=== PATIENT | male | born 1975 | race African-American/Black ===

== ENCOUNTER 2016-10-19 11:08 | Inpatient (IN) | payer BC ==
[~2016-10-19] VITALS: Ht 190.5 cm; Wt 103.9 kg
[2016-10-19 12:44] LABS: BG BASE EXCESS -10.6 mmol/L (-2.0-2.0); BG CARBOXYHEMOGLOBIN 1.4 % (0.5-1.5); BG DEOXYHEMOGLOBIN 3.4 % (0.0-5.0); BG FRACTION INSPIRED OXYGEN 21; BG HCO3 ACT 15.1 mmol/L (22.0-26.0); BG METHEMOGLOBIN 0.1 % (0.0-1.5); BG OXYGEN SATURATION 96.5 % (92.0-98.5); BG OXYHEMOGLOBIN 95.1 % (94.0-97.0); BG PCO2 32.9 mmHg (35.0-45.0); BG PH 7.279 (7.350-7.450); BG PO2 98.1 mmHg (75.0-100.0); BG SAMPLE SITE LEFT BRACHIAL; BG TOTAL HEMOGLOBIN 12.9 g/dL (12.0-18.0); BG VENT MODE ROOM AIR
[2016-10-19] MEDS ORDERED: LABETALOL 5MG/ML SYR 20 MG/4 ML SYRINGE IV ONE (12:45)
[2016-10-19] MEDS ORDERED: CLONIDINE 0.1MG TABLET PO ONE (12:45)
[2016-10-19 13:05] LABS: BASOPHILS % 0.9 % (0.0-2.0); EOSINOPHILS % 2.1 % (0.0-5.0); HEMATOCRIT. 39.5 % (42.0-52.0); MEAN CORPUSCULAR HEMOGLOBIN 27.7 pg (28.0-32.0); MEAN CORPUSCULAR VOLUME 84.3 fL (80.0-94.0); MONOCYTES % 10.9 % (2.0-8.0); NEUTROPHILS % 78.1 % (40.0-76.0); RED BLOOD CELL COUNT 4.68 mill/uL (4.7-6.1); RED CELL DISTRIBUTION WIDTH 15.4 % (11.6-14.6)
[2016-10-19 13:08] LABS: PROTHROMBIN TIME 10.3 sec (9.4-11.6)
[2016-10-19 13:10] LABS: CARBON DIOXIDE 19 mEq/L (21-32); CHLORIDE 101 mEq/L (98-107); ETHANOL BLOOD < 10 mg/dL
[2016-10-19 13:17] LABS: TROPONIN I 0.36 ng/mL (0.00-0.04)
[2016-10-19 13:32] LABS: MEAN PLATELET VOLUME 9.1 fl (7.4-10.4); PLATELET 52 x1000/uL (130-400)
[2016-10-19] MEDS ORDERED: DEXTROSE 50% WATER 50ML SYRINGE IV ONE (13:45)
[2016-10-19] MEDS ORDERED: CALCIUM CHLORIDE 1GM/10ML SYR IV ONE (13:45)
[2016-10-19] MEDS ORDERED: INSULIN REGULAR (HUMULIN R) 300UNITS/3ML IV ONE (13:45)
[2016-10-19] MEDS ORDERED: SODIUM POLYSTYRENE SULFONATE 15 G/60 ML BOT PO ONE (13:45)
[2016-10-19] MEDS ORDERED: SODIUM BICARBONATE 8.4% 1 MEQ/ML 50ML SYR IV ONE (13:45)
[2016-10-19] MEDS ORDERED: IOHEXOL-300 100 ML BOTTLE ONE (14:41)
[2016-10-19] MEDS ORDERED: SODIUM CHLORIDE 0.9% 10ML VIAL ONE (14:41)
[2016-10-19] MEDS ORDERED: CEFTRIAXONE 1 G PREMIX 50 ML IV ONE (15:30)
[2016-10-19 16:13] LABS: CLARITY URINE CLEAR (CLEAR); COLOR URINE YELLOW (YELLOW); GLUCOSE URINE TRACE (NEGATIVE); KETONES URINE NEGATIVE (NEGATIVE); LEUKOCYTE ESTERASE URINE NEGATIVE (NEGATIVE); NITRITE URINE NEGATIVE (NEGATIVE); OCCULT BLOOD URINE 1+ (NEGATIVE); PROTEIN URINE 3+ (NEGATIVE); SPECIFIC GRAVITY URINE 1.015 (1.005-1.030); UROBILINOGEN URINE 0.2 E.U./dL (0.2-1.0)
[2016-10-19] MEDS ORDERED: HYDROCODONE/ACETAMINOPHEN 5/325MG TABLET PO ONE (16:15)
[2016-10-19 16:26] LABS: *AMPHETAMINES SCREEN URINE NEGATIVE (NEGATIVE); *BARBITURATES SCREEN URINE NEGATIVE (NEGATIVE); *BENZODIAZEPINES SCREEN URINE NEGATIVE (NEGATIVE); *COCAINE SCREEN URINE NEGATIVE (NEGATIVE); CANNABINOID URINE SCREEN NEGATIVE (NEGATIVE); METHADONE URINE SCREEN NEGATIVE (NEGATIVE); OPIATES URINE SCREEN NEGATIVE (NEGATIVE); PHENCYCLIDINE URINE SCREEN NEGATIVE (NEGATIVE)
[2016-10-19 17:00] VITALS: BP 229/120
[2016-10-19] MEDS ORDERED: LOSA100T14 PO (17:04)
[2016-10-19] MEDS ORDERED: ISOS30TA6 PO (17:04)
[2016-10-19] MEDS ORDERED: AMLO2.5T45 PO (17:05)
[2016-10-19] MEDS ORDERED: HYDR100T26 PO (17:12)
[2016-10-19] MEDS ORDERED: SEVE800T8 PO (17:12)
[2016-10-19] MEDS ORDERED: PHOSLO PO (17:12)
[2016-10-19] MEDS ORDERED: RENAVITE (17:12)
[2016-10-19] MEDS ORDERED: LABE100T PO (17:12)
[2016-10-19] MEDS ORDERED: ACETAMINOPHEN 650MG/20.3ML UDC PO PRN (18:15)
[2016-10-19] MEDS ORDERED: ONDANSETRON HCL 4MG/2ML VIAL IV PRN (18:15)
[2016-10-19] MEDS ORDERED: HYDRALAZINE 20MG/ML VIAL IV NR (18:30)
[2016-10-19] MEDS ORDERED: GENTAMICIN 100MG PREMIX 50 ML IV SCH (20:00)
[2016-10-19] MEDS: LABETALOL HCL 200MG TABLET PO SCH (21:25)
[2016-10-19] MEDS: HYDRALAZINE HCL 100MG TABLET PO SCH (21:25)
[2016-10-19] MEDS: HYDROCODONE/ACETAMINOPHEN 5/325MG TABLET PO PRN (21:26)
[2016-10-19] MEDS ORDERED: CARISOPRODOL 350 MG TABLET PO NR (22:10)
[2016-10-20] MEDS: LABETALOL HCL 200MG TABLET PO SCH ×3 (05:32→21:59)
[2016-10-20] MEDS: HYDRALAZINE HCL 100MG TABLET PO SCH ×3 (05:33→21:59)
[2016-10-20 05:57] LABS: HEMATOCRIT. 33.4 % (42.0-52.0); HEMOGLOBIN. 11.2 g/dL (14.0-18.0); MEAN CORPUSCULAR HEMOGLOBIN 27.7 pg (28.0-32.0); MEAN CORPUSCULAR VOLUME 82.7 fL (80.0-94.0); MEAN PLATELET VOLUME 9.3 fl (7.4-10.4); PLATELET 51 x1000/uL (130-400); RED BLOOD CELL COUNT 4.04 mill/uL (4.7-6.1); RED CELL DISTRIBUTION WIDTH 15.3 % (11.6-14.6)
[2016-10-20 05:59] LABS: CARBON DIOXIDE 21 mEq/L (21-32); CHLORIDE 102 mEq/L (98-107)
[2016-10-20 06:18] LABS: PHOSPHORUS 7.3 mg/dL (2.5-4.9)
[2016-10-20 08:00] VITALS: BP 154/100
[2016-10-20] MEDS ORDERED: SEVELAMER CARBONATE 800 MG TABLET PO SCH (08:10)
[2016-10-20] MEDS: FOLIC ACID/VITAMIN B COMP W-C TABLET PO SCH (08:18)
[2016-10-20] MEDS: LOSARTAN POTASSIUM 100 MG TABLET PO SCH (08:18)
[2016-10-20] MEDS: AMLODIPINE 10MG TABLET PO SCH (08:18)
[2016-10-20] MEDS: OMEPRAZOLE 20MG CAPSULE EXTENDED RELEASE PO SCH (08:19)
[2016-10-20] MEDS ORDERED: ENOXAPARIN 30MG/0.3ML SYR SUBCUT SCH (09:00)
[2016-10-20] MEDS ORDERED: ISOSORBIDE MONONITRATE 30MG TABLET SR 24HR PO SCH (09:00)
[2016-10-20 12:20] VITALS: BP 149/88
[2016-10-20] MEDS: SEVELAMER CARBONATE 800 MG TABLET PO SCH ×2 (13:37→17:35)
[2016-10-20 16:17] VITALS: BP 127/75
[2016-10-20] MEDS: ISOSORBIDE DINITRATE 30MG TABLET PO SCH (17:34)
[2016-10-20] MEDS: HYDROCODONE/ACETAMINOPHEN 5/325MG TABLET PO PRN (21:58)
[2016-10-21 06:03] LABS: BASOPHILS % 0.7 % (0.0-2.0); EOSINOPHILS % 2.7 % (0.0-5.0); HEMOGLOBIN. 10.9 g/dL (14.0-18.0); LYMPHOCYTES % 9.4 % (20.0-50.0); MEAN CORPUSCULAR HEMOGLOBIN 27.5 pg (28.0-32.0); MEAN CORPUSCULAR VOLUME 82.9 fL (80.0-94.0); MEAN PLATELET VOLUME 9.7 fl (7.4-10.4); MONOCYTES % 9.5 % (2.0-8.0); NEUTROPHILS % 77.7 % (40.0-76.0); PLATELET 67 x1000/uL (130-400); RED BLOOD CELL COUNT 3.97 mill/uL (4.7-6.1); RED CELL DISTRIBUTION WIDTH 15.1 % (11.6-14.6)
[2016-10-21] MEDS: HYDRALAZINE HCL 100MG TABLET PO SCH ×3 (06:41→21:20)
[2016-10-21] MEDS: LABETALOL HCL 200MG TABLET PO SCH ×3 (06:42→21:20)
[2016-10-21 08:00] VITALS: BP 144/95
[2016-10-21] MEDS: FOLIC ACID/VITAMIN B COMP W-C TABLET PO SCH (08:41)
[2016-10-21] MEDS: AMLODIPINE 10MG TABLET PO SCH (08:42)
[2016-10-21] MEDS: ISOSORBIDE DINITRATE 30MG TABLET PO SCH ×2 (08:42→17:27)
[2016-10-21] MEDS: LOSARTAN POTASSIUM 100 MG TABLET PO SCH (08:42)
[2016-10-21] MEDS: OMEPRAZOLE 20MG CAPSULE EXTENDED RELEASE PO SCH (08:42)
[2016-10-21] MEDS: SEVELAMER CARBONATE 800 MG TABLET PO SCH ×3 (08:42→17:27)
[2016-10-21 12:11] VITALS: BP 142/82
[2016-10-21 15:34] VITALS: BP 122/68
[2016-10-21] MEDS: CITALOPRAM HYDROBROMIDE 10MG TABLET PO SCH (17:27)
[2016-10-21] MEDS ORDERED: GENTAMICIN 100MG PREMIX 50 ML IV NR (18:30)
[2016-10-21 20:00] VITALS: BP 133/73
[2016-10-21 21:07] LABS: PLATELET ESTIMATE DECREASED
[2016-10-21] MEDS: HYDROCODONE/ACETAMINOPHEN 5/325MG TABLET PO PRN (21:25)
[2016-10-22] VITALS: BP 107/55
[2016-10-22 04:00] VITALS: BP 108/62
[2016-10-22 05:19] LABS: BASOPHILS % 1.2 % (0.0-2.0); EOSINOPHILS % 4.4 % (0.0-5.0); HEMOGLOBIN. 10.4 g/dL (14.0-18.0); LYMPHOCYTES % 10.7 % (20.0-50.0); MEAN PLATELET VOLUME 9.4 fl (7.4-10.4); MONOCYTES % 9.5 % (2.0-8.0); NEUTROPHILS % 74.2 % (40.0-76.0); PLATELET 82 x1000/uL (130-400); RED BLOOD CELL COUNT 3.85 mill/uL (4.7-6.1); RED CELL DISTRIBUTION WIDTH 14.7 % (11.6-14.6)
[2016-10-22] MEDS: HYDRALAZINE HCL 100MG TABLET PO SCH ×3 (05:45→21:53)
[2016-10-22] MEDS: LABETALOL HCL 200MG TABLET PO SCH ×3 (05:46→21:53)
[2016-10-22 06:00] LABS: GENTAMICIN RANDOM 3.7 ug/mL
[2016-10-22 07:46] VITALS: BP 131/83
[2016-10-22] MEDS: ISOSORBIDE DINITRATE 30MG TABLET PO SCH ×2 (08:32→17:37)
[2016-10-22] MEDS: CITALOPRAM HYDROBROMIDE 10MG TABLET PO SCH (08:32)
[2016-10-22] MEDS: LOSARTAN POTASSIUM 100 MG TABLET PO SCH (08:32)
[2016-10-22] MEDS: AMLODIPINE 10MG TABLET PO SCH (08:32)
[2016-10-22] MEDS: FOLIC ACID/VITAMIN B COMP W-C TABLET PO SCH (08:32)
[2016-10-22] MEDS: OMEPRAZOLE 20MG CAPSULE EXTENDED RELEASE PO SCH (08:32)
[2016-10-22] MEDS: SEVELAMER CARBONATE 800 MG TABLET PO SCH ×3 (08:32→17:37)
[2016-10-22] MEDS ORDERED: FAMOTIDINE 20MG TABLET PO SCH (09:00)
[2016-10-22 12:00] VITALS: BP 142/89
[2016-10-22 15:37] VITALS: BP 142/84
[2016-10-22] MEDS: HYDROCODONE/ACETAMINOPHEN 5/325MG TABLET PO PRN (17:39)
[2016-10-22 20:00] VITALS: BP 104/60
[2016-10-22] MEDS ORDERED: EPOETIN ALFA 10000UNITS/ML VIAL SUBCUT NR (21:00)
[2016-10-23] VITALS: BP 112/67
[2016-10-23 04:00] VITALS: BP 120/60
[2016-10-23] MEDS: HYDRALAZINE HCL 100MG TABLET PO SCH (06:02)
[2016-10-23] MEDS: LABETALOL HCL 200MG TABLET PO SCH (06:02)
[2016-10-23 06:33] LABS: BASOPHILS % 1.7 % (0.0-2.0); EOSINOPHILS % 4.1 % (0.0-5.0); HEMATOCRIT. 33.5 % (42.0-52.0); LYMPHOCYTES % 11.5 % (20.0-50.0); MEAN CORPUSCULAR HEMOGLOBIN 27.5 pg (28.0-32.0); MEAN CORPUSCULAR VOLUME 83.5 fL (80.0-94.0); MONOCYTES % 9.5 % (2.0-8.0); NEUTROPHILS % 73.2 % (40.0-76.0); PLATELET 114 x1000/uL (130-400); RED BLOOD CELL COUNT 4.01 mill/uL (4.7-6.1); RED CELL DISTRIBUTION WIDTH 14.5 % (11.6-14.6)
[2016-10-23 08:00] VITALS: BP 99/62
[2016-10-23] MEDS: AMLODIPINE 10MG TABLET PO SCH (09:00)
[2016-10-23] MEDS: ISOSORBIDE DINITRATE 30MG TABLET PO SCH (09:00)
[2016-10-23] MEDS: LOSARTAN POTASSIUM 100 MG TABLET PO SCH (09:00)
[2016-10-23] MEDS: CITALOPRAM HYDROBROMIDE 10MG TABLET PO SCH (09:15)
[2016-10-23] MEDS: OMEPRAZOLE 20MG CAPSULE EXTENDED RELEASE PO SCH (09:15)
[2016-10-23] MEDS: SEVELAMER CARBONATE 800 MG TABLET PO SCH (09:15)
[2016-10-23] MEDS: FOLIC ACID/VITAMIN B COMP W-C TABLET PO SCH (09:21)
[2016-10-23] MEDS ORDERED: OMEP20CA10 PO (10:59)
[2016-10-23] MEDS ORDERED: CITA10TA16 PO (10:59)
[2016-10-23] MEDS ORDERED: HYDR100T26 PO (11:00)
[2016-10-23 11:03] VITALS: BP 132/87
== END 2016-10-23 11:15 | disposition home or self-care (01) | DRG 640 ==
LOC: ER 12:37 → ENRESERV 15:30 → 7WST 15:46 → EDBEDREQTM 15:55 → EDBEDREQ 15:55 → CANBEDREQ 16:17
DX: E87.5 Hyperkalemia (principal); K65.0 Generalized (acute) peritonitis; I13.2 Hypertensive heart and chronic kidney disease with heart failure and with stage 5 chronic kidney disease, or end stage renal disease; D61.818 Other pancytopenia; N18.6 End stage renal disease; E87.2 Acidosis; E46 Unspecified protein-calorie malnutrition; I16.1 Hypertensive emergency; I50.9 Heart failure, unspecified; K21.9 Gastro-esophageal reflux disease without esophagitis; F32.9 Major depressive disorder, single episode, unspecified; Z91.15 Patient's noncompliance with renal dialysis; Z99.2 Dependence on renal dialysis; Z79.899 Other long term (current) drug therapy; Z68.28 Body mass index [BMI] 28.0-28.9, adult
CPT/HCPCS: 36415; 36600; 71010; 74177; 80048; 80053; 80170; 80305; 81001; 82375; 82805; 82962; 83605; 83690; 83735; 84100; 84132; 84484; 85025; 85610; 85730; 86850; 86900; 87040; 87070; 87086; 87205; 89050; 93005; 93306; 96374; 96375; 99291; A4216; G0482; J0360; J0696; J0885; J1580; J1815; J2405; J3490; J7050; Q9967

== ENCOUNTER 2017-02-27 10:30 | Inpatient (IN) | payer BC, MEDICAID, OTHER ==
[~2017-02-27] VITALS: Ht 190.5 cm; Wt 94.3 kg
[~2017-02-27 10:30] MED LIST: AMLO2.5T45 PO; CITA10TA16 PO; HYDR100T26 PO; ISOS30TA6 PO; LABE100T PO; LOSA100T14 PO; OMEP20CA10 PO; PHOSLO PO; RENAVITE; SEVE800T8 PO
[2017-02-27 12:30] LABS: HEMOGLOBIN. 8.8 g/dL (14.0-18.0); MEAN CORPUSCULAR VOLUME 86.4 fL (80.0-94.0); PLATELET 228 x1000/uL (130-400); RED BLOOD CELL COUNT 3.12 mill/uL (4.7-6.1)
[2017-02-27 12:50] LABS: INR 1.1; PROTHROMBIN TIME 11.7 sec (9.4-11.6)
[2017-02-27 12:56] LABS: CARBON DIOXIDE 23 mEq/L (21-32); CHLORIDE 100 mEq/L (98-107)
[2017-02-27 12:57] LABS: TROPONIN I 0.34 ng/mL (0.00-0.04)
[2017-02-27 13:27] LABS: PLATELET ESTIMATE NORMAL
[2017-02-27] MEDS ORDERED: HYDRALAZINE 20MG/ML VIAL IV ONE (16:30)
[2017-02-28] VITALS (14 sets, daily range): BP systolic 139–211; BP diastolic 72–137
[2017-02-28] MEDS ORDERED: DOCUSATE SODIUM 100MG CAPSULE PO PRN
[2017-02-28] MEDS ORDERED: IPRATROPIUM/ALBUTEROL 0.5-3(2.5)MG/3ML NEB INH PRN
[2017-02-28] MEDS ORDERED: ACETAMINOPHEN 325MG TABLET PO PRN
[2017-02-28] MEDS ORDERED: HYDROCODONE/ACETAMINOPHEN 5/325MG TABLET PO PRN
[2017-02-28] MEDS ORDERED: DIPHENHYDRAMINE 50MG/ML VIAL IV PRN
[2017-02-28] MEDS ORDERED: CLONIDINE 0.1MG TABLET PO PRN
[2017-02-28] MEDS ORDERED: ONDANSETRON HCL 4MG/2ML VIAL IV PRN
[2017-02-28] MEDS ORDERED: GUAIFENESIN 200MG/10ML SUGAR FREE UDC PO PRN
[2017-02-28] MEDS ORDERED: LORAZEPAM 2MG/ML CPJ IV PRN
[2017-02-28] MEDS ORDERED: AMLODIPINE 10MG TABLET PO SCH (02:24)
[2017-02-28] MEDS: AMLODIPINE 10MG TABLET PO SCH (02:26)
[2017-02-28] MEDS ORDERED: LORAZEPAM 0.5MG TABLET PO PRN (02:30)
[2017-02-28] MEDS: LOSARTAN POTASSIUM 100 MG TABLET PO SCH ×2 (02:31→08:22)
[2017-02-28] MEDS: HYDRALAZINE HCL 100MG TABLET PO SCH ×4 (02:31→21:25)
[2017-02-28] MEDS: ISOSORBIDE DINITRATE 30MG TABLET PO SCH ×3 (02:48→17:25)
[2017-02-28] MEDS: LABETALOL HCL 300MG TABLET PO SCH ×4 (02:48→21:25)
[2017-02-28] MEDS ORDERED: NITROPRUSSIDE 50 MG in DEXT 5% WATER 250 ML IV PRN (05:00)
[2017-02-28 05:48] LABS: HEMATOCRIT. 26.6 % (42.0-52.0); MEAN CORPUSCULAR HEMOGLOBIN 28.8 pg (28.0-32.0); MEAN CORPUSCULAR VOLUME 85.6 fL (80.0-94.0); MEAN PLATELET VOLUME 7.5 fl (7.4-10.4); PLATELET 245 x1000/uL (130-400); RED BLOOD CELL COUNT 3.11 mill/uL (4.7-6.1); RED CELL DISTRIBUTION WIDTH 18.9 % (11.6-14.6)
[2017-02-28] MEDS: OMEPRAZOLE 20MG CAPSULE EXTENDED RELEASE PO SCH (06:34)
[2017-02-28 07:03] LABS: T4 FREE 0.93 ng/dL (0.76-1.46)
[2017-02-28] MEDS ORDERED: CALCIUM ACETATE 667MG CAPSULE PO ONE (08:00)
[2017-02-28] MEDS: SEVELAMER CARBONATE 800 MG TABLET PO SCH ×4 (08:00→17:23)
[2017-02-28] MEDS: ASPIRIN 81MG EC TABLET PO SCH (08:22)
[2017-02-28] MEDS: FOLIC ACID/VITAMIN B COMP W-C TABLET PO SCH (08:22)
[2017-02-28 09:01] LABS: PHOSPHORUS 8.3 mg/dL (2.5-4.9)
[2017-02-28] MEDS ORDERED: CINACALCET HCL 90MG TABLET PO SCH (10:00)
[2017-02-28] MEDS: CALCITRIOL 0.25MCG CAPSULE PO SCH (10:42)
[2017-02-28] MEDS ORDERED: CLONIDINE HCL 0.3MG/24HR PATCH TD SCH (11:00)
[2017-02-28 16:18] LABS: PLATELET ESTIMATE NORMAL
[2017-02-28] MEDS ORDERED: EPOETIN ALFA 10000UNITS/ML VIAL SUBCUT SCH (21:00)
[2017-03-01] VITALS (13 sets, daily range): BP systolic 106–170; BP diastolic 64–92
[2017-03-01] MEDS: OMEPRAZOLE 20MG CAPSULE EXTENDED RELEASE PO SCH (05:42)
[2017-03-01] MEDS: HYDRALAZINE HCL 100MG TABLET PO SCH (05:42)
[2017-03-01] MEDS: LABETALOL HCL 300MG TABLET PO SCH ×3 (05:42→22:00)
[2017-03-01] MEDS: SEVELAMER CARBONATE 800 MG TABLET PO SCH ×4 (08:00→18:42)
[2017-03-01] MEDS: ASPIRIN 81MG EC TABLET PO SCH (08:31)
[2017-03-01] MEDS: CALCITRIOL 0.25MCG CAPSULE PO SCH (08:31)
[2017-03-01] MEDS: FOLIC ACID/VITAMIN B COMP W-C TABLET PO SCH (08:31)
[2017-03-01] MEDS: CINACALCET HCL 30MG TABLET PO SCH (08:31)
[2017-03-01] MEDS: ISOSORBIDE DINITRATE 30MG TABLET PO SCH ×2 (08:31→17:00)
[2017-03-01] MEDS: AMLODIPINE 10MG TABLET PO SCH (08:31)
[2017-03-01] MEDS: LOSARTAN POTASSIUM 100 MG TABLET PO SCH (08:31)
[2017-03-01] MEDS ORDERED: IRON SUCROSE COMPLEX 100 MG/5 ML ML IV SCH (14:00)
[2017-03-01] MEDS ORDERED: EPOETIN ALFA 10000UNITS/ML VIAL SUBCUT SCH (21:00)
[2017-03-02] VITALS (8 sets, daily range): BP systolic 106–155; BP diastolic 66–88
[2017-03-02] MEDS: LABETALOL HCL 300MG TABLET PO SCH (06:00)
[2017-03-02 06:43] LABS: HEMATOCRIT. 30.1 % (42.0-52.0); MEAN CORPUSCULAR HEMOGLOBIN 28.3 pg (28.0-32.0); MEAN CORPUSCULAR VOLUME 84.9 fL (80.0-94.0); MEAN PLATELET VOLUME 7.7 fl (7.4-10.4); PLATELET 293 x1000/uL (130-400); RED BLOOD CELL COUNT 3.54 mill/uL (4.7-6.1); RED CELL DISTRIBUTION WIDTH 19.2 % (11.6-14.6)
[2017-03-02] MEDS: OMEPRAZOLE 20MG CAPSULE EXTENDED RELEASE PO SCH (07:30)
[2017-03-02 07:31] LABS: PHOSPHORUS 7.6 mg/dL (2.5-4.9)
[2017-03-02 08:28] LABS: PLATELET ESTIMATE NORMAL
[2017-03-02] MEDS: FOLIC ACID/VITAMIN B COMP W-C TABLET PO SCH (08:41)
[2017-03-02] MEDS: SEVELAMER CARBONATE 800 MG TABLET PO SCH (08:41)
[2017-03-02] MEDS: CALCITRIOL 0.25MCG CAPSULE PO SCH (08:42)
[2017-03-02] MEDS: LOSARTAN POTASSIUM 100 MG TABLET PO SCH (08:42)
[2017-03-02] MEDS: ISOSORBIDE DINITRATE 30MG TABLET PO SCH (08:42)
[2017-03-02] MEDS: CINACALCET HCL 30MG TABLET PO SCH (08:42)
[2017-03-02] MEDS: ASPIRIN 81MG EC TABLET PO SCH (08:43)
[2017-03-02] MEDS: AMLODIPINE 10MG TABLET PO SCH (08:43)
== END 2017-03-02 14:30 | disposition home or self-care (01) | DRG 291 ==
LOC: ER 12:27 → EDBEDREQ 16:30 → EDBEDREQTM 16:30 → EDBEDREQSVC 16:30 → 5EST 17:59 → EDBEDREQTM 18:00 → EDBEDREQSVC 18:00 → EDBEDREQTM 18:01 → ENRESERV 22:20 → SUPCPDRO 23:47
PROVIDERS: ADMIT Hospitalist; ATTEND Hospitalist
DX: I13.2 Hypertensive heart and chronic kidney disease with heart failure and with stage 5 chronic kidney disease, or end stage renal disease (principal); I50.31 Acute diastolic (congestive) heart failure; K65.9 Peritonitis, unspecified; E46 Unspecified protein-calorie malnutrition; N18.6 End stage renal disease; N25.81 Secondary hyperparathyroidism of renal origin; E87.5 Hyperkalemia; D64.9 Anemia, unspecified; E74.39 Other disorders of intestinal carbohydrate absorption; I95.1 Orthostatic hypotension; K21.9 Gastro-esophageal reflux disease without esophagitis; Z91.15 Patient's noncompliance with renal dialysis; Z99.2 Dependence on renal dialysis; Z68.26 Body mass index [BMI] 26.0-26.9, adult
CPT/HCPCS: 36415; 71045; 80048; 80053; 83880; 83970; 84100; 84439; 84443; 84484; 85025; 85610; 93005; 93306; 99285; J0360; J0885; J1200; J7620

== ENCOUNTER 2017-04-24 16:47 | Inpatient (IN) | payer OTHER ==
[~2017-04-24] VITALS: Ht 188 cm; Wt 98.9 kg
[~2017-04-24 16:47] MED LIST changes: -LABE100T PO; -RENAVITE
[2017-04-24 17:22] LABS: HEMATOCRIT. 36.9 % (42.0-52.0); HEMOGLOBIN. 11.9 g/dL (14.0-18.0); MEAN CORPUSCULAR HEMOGLOBIN 27.8 pg (28.0-32.0); MEAN CORPUSCULAR VOLUME 85.9 fL (80.0-94.0); MEAN PLATELET VOLUME 7.9 fl (7.4-10.4); PLATELET 178 x1000/uL (130-400); RED BLOOD CELL COUNT 4.29 mill/uL (4.7-6.1); RED CELL DISTRIBUTION WIDTH 16.4 % (11.6-14.6)
[2017-04-24 17:24] LABS: CHLORIDE 96 mEq/L (98-107)
[2017-04-24 17:26] LABS: INR 1.1; PROTHROMBIN TIME 11.2 sec (9.4-11.6)
[2017-04-24 17:37] LABS: PLATELET ESTIMATE NORMAL
[2017-04-24] MEDS ORDERED: ONDANSETRON HCL 4MG/2ML VIAL IV PRN (18:27)
[2017-04-24 18:31] LABS: PHOSPHORUS 8.7 mg/dL (2.5-4.9)
[2017-04-24] MEDS ORDERED: DEXTROSE 50% WATER 50ML SYRINGE IV ONE (19:30)
[2017-04-24] MEDS ORDERED: INSULIN REGULAR (HUMULIN R) 300UNITS/3ML IV ONE (19:30)
[2017-04-24] MEDS ORDERED: CALCIUM GLUCONATE 1,000 MG in DEXT 5% WATER 100 ML IV ONE (19:30)
[2017-04-24] MEDS ORDERED: SODIUM BICARBONATE 8.4% 1 MEQ/ML 50ML SYR IV ONE (19:30)
[2017-04-24] MEDS ORDERED: SODIUM POLYSTYRENE SULFONATE 15 G/60 ML BOT PO ONE (19:30)
[2017-04-24] MEDS: PANTOPRAZOLE SODIUM 40 MG/VIAL IV SCH (20:52)
[2017-04-25] VITALS (10 sets, daily range): BP systolic 156–193; BP diastolic 87–126
[2017-04-25] MEDS ORDERED: CLONIDINE 0.2MG TABLET PO SCH (00:33)
[2017-04-25] MEDS ORDERED: DIPHENHYDRAMINE 50MG/ML VIAL IV PRN (03:00)
[2017-04-25] MEDS ORDERED: LABETALOL HCL 200MG TABLET PO SCH (03:15)
[2017-04-25] MEDS: HYDRALAZINE HCL 100MG TABLET PO SCH ×3 (04:13→21:11)
[2017-04-25] MEDS ORDERED: OMEPRAZOLE 20MG CAPSULE EXTENDED RELEASE PO SCH (07:30)
[2017-04-25] MEDS: SEVELAMER CARBONATE 800 MG TABLET PO SCH ×4 (08:00→18:54)
[2017-04-25 08:13] LABS: BASOPHILS % 1.2 % (0.0-2.0); EOSINOPHILS % 3.1 % (0.0-5.0); HEMATOCRIT. 35.2 % (42.0-52.0); HEMOGLOBIN. 11.3 g/dL (14.0-18.0); LYMPHOCYTES % 7.1 % (20.0-50.0); MEAN CORPUSCULAR HEMOGLOBIN 27.7 pg (28.0-32.0); MEAN CORPUSCULAR VOLUME 86.3 fL (80.0-94.0); MEAN PLATELET VOLUME 7.6 fl (7.4-10.4); MONOCYTES % 11.5 % (2.0-8.0); NEUTROPHILS % 77.1 % (40.0-76.0); PLATELET 151 x1000/uL (130-400); RED BLOOD CELL COUNT 4.08 mill/uL (4.7-6.1); RED CELL DISTRIBUTION WIDTH 16.4 % (11.6-14.6)
[2017-04-25] MEDS: PANTOPRAZOLE SODIUM 40 MG/VIAL IV SCH (08:15)
[2017-04-25] MEDS: LOSARTAN POTASSIUM 100 MG TABLET PO SCH (08:16)
[2017-04-25] MEDS: CITALOPRAM HYDROBROMIDE 10MG TABLET PO SCH ×2 (08:16→08:31)
[2017-04-25] MEDS: CALCITRIOL 0.25MCG CAPSULE PO SCH (08:16)
[2017-04-25] MEDS: AMLODIPINE 10MG TABLET PO SCH ×2 (08:17→21:11)
[2017-04-25 08:31] LABS: CHLORIDE 94 mEq/L (98-107)
[2017-04-25] MEDS ORDERED: ISOSORBIDE MONONITRATE 30MG TABLET SR 24HR PO SCH (09:00)
[2017-04-25] MEDS ORDERED: CLONIDINE HCL 0.2MG/24HR PATCH TD SCH ×2 (09:00→11:00)
[2017-04-25] MEDS: ISOSORBIDE MONONITRATE 30MG TABLET SR 24HR PO SCH (11:06)
[2017-04-25] MEDS: LABETALOL HCL 200MG TABLET PO SCH ×2 (13:18→21:10)
[2017-04-25] MEDS: FOLIC ACID/VITAMIN B COMP W-C TABLET PO SCH (13:21)
[2017-04-25] MEDS: CINACALCET HCL 60MG TABLET PO SCH (15:00)
[2017-04-25] MEDS: CALCIUM ACETATE 667MG CAPSULE PO SCH (18:53)
[2017-04-25 20:52] LABS: TROPONIN I 0.33 ng/mL (0.00-0.04)
[2017-04-26] VITALS (10 sets, daily range): BP systolic 144–175; BP diastolic 83–104
[2017-04-26] MEDS: HYDRALAZINE HCL 100MG TABLET PO SCH ×3 (06:42→23:31)
[2017-04-26] MEDS: LABETALOL HCL 200MG TABLET PO SCH ×3 (06:43→23:32)
[2017-04-26 07:24] LABS: BASOPHILS % 0.9 % (0.0-2.0); EOSINOPHILS % 3.7 % (0.0-5.0); HEMATOCRIT. 36.3 % (42.0-52.0); HEMOGLOBIN. 11.7 g/dL (14.0-18.0); LYMPHOCYTES % 10.1 % (20.0-50.0); MEAN CORPUSCULAR HEMOGLOBIN 27.9 pg (28.0-32.0); MEAN CORPUSCULAR VOLUME 86.7 fL (80.0-94.0); MEAN PLATELET VOLUME 7.9 fl (7.4-10.4); MONOCYTES % 10.9 % (2.0-8.0); NEUTROPHILS % 74.4 % (40.0-76.0); PLATELET 163 x1000/uL (130-400); RED BLOOD CELL COUNT 4.18 mill/uL (4.7-6.1); RED CELL DISTRIBUTION WIDTH 16.5 % (11.6-14.6)
[2017-04-26] MEDS: CALCIUM ACETATE 667MG CAPSULE PO SCH ×3 (08:36→18:00)
[2017-04-26] MEDS: CALCITRIOL 0.25MCG CAPSULE PO SCH (08:37)
[2017-04-26] MEDS: FAMOTIDINE 20MG TABLET PO SCH (08:37)
[2017-04-26] MEDS: SEVELAMER CARBONATE 800 MG TABLET PO SCH ×3 (08:37→18:00)
[2017-04-26] MEDS: CINACALCET HCL 60MG TABLET PO SCH (08:38)
[2017-04-26] MEDS: LOSARTAN POTASSIUM 100 MG TABLET PO SCH (08:38)
[2017-04-26] MEDS: FOLIC ACID/VITAMIN B COMP W-C TABLET PO SCH (08:38)
[2017-04-26] MEDS: ISOSORBIDE MONONITRATE 30MG TABLET SR 24HR PO SCH (08:38)
[2017-04-26] MEDS: AMLODIPINE 10MG TABLET PO SCH ×2 (08:38→21:32)
[2017-04-26] MEDS: POLYETHYLENE GLYCOL 3350 (17GM) 1 DOSE PACK PO SCH (08:39)
[2017-04-26] MEDS ORDERED: ISOSORBIDE MONONITRATE 30MG TABLET SR 24HR PO NR (21:00)
[2017-04-27] VITALS (8 sets, daily range): BP systolic 98–154; BP diastolic 63–87
[2017-04-27] MEDS: LABETALOL HCL 200MG TABLET PO SCH (05:58)
[2017-04-27] MEDS: HYDRALAZINE HCL 100MG TABLET PO SCH (05:58)
[2017-04-27] MEDS: SEVELAMER CARBONATE 800 MG TABLET PO SCH ×2 (08:27→13:00)
[2017-04-27] MEDS: CALCIUM ACETATE 667MG CAPSULE PO SCH ×2 (08:27→13:00)
[2017-04-27] MEDS: AMLODIPINE 10MG TABLET PO SCH (08:31)
[2017-04-27] MEDS: LOSARTAN POTASSIUM 100 MG TABLET PO SCH (08:32)
[2017-04-27] MEDS: FAMOTIDINE 20MG TABLET PO SCH (08:32)
[2017-04-27] MEDS: CALCITRIOL 0.25MCG CAPSULE PO SCH (08:32)
[2017-04-27] MEDS: FOLIC ACID/VITAMIN B COMP W-C TABLET PO SCH (08:32)
[2017-04-27] MEDS: CINACALCET HCL 60MG TABLET PO SCH (08:33)
[2017-04-27] MEDS: POLYETHYLENE GLYCOL 3350 (17GM) 1 DOSE PACK PO SCH (08:33)
[2017-04-27] MEDS ORDERED: ISOSORBIDE MONONITRATE 60MG TABLET SR 24HR PO SCH (09:00)
== END 2017-04-27 16:50 | disposition home or self-care (01) | DRG 683 ==
LOC: ER 16:51 → 5EST 20:01 → EDBEDREQ 20:06 → EDBEDREQSVC 20:06 → ENRESERV 22:47
PROVIDERS: ADMIT Internal Medicine; ATTEND Internal Medicine
PROC: 3E1M39Z Irrigation of Peritoneal Cavity using Dialysate, Percutaneous Approach (ICD-10-PCS; 2017-04-24)
PROC: 3E1M39Z Irrigation of Peritoneal Cavity using Dialysate, Percutaneous Approach (ICD-10-PCS; 2017-04-25)
PROC: 4A00X4Z Measurement of Central Nervous Electrical Activity, External Approach (ICD-10-PCS; principal; 2017-04-26)
DX: N17.9 Acute kidney failure, unspecified (principal); I13.2 Hypertensive heart and chronic kidney disease with heart failure and with stage 5 chronic kidney disease, or end stage renal disease; E46 Unspecified protein-calorie malnutrition; I50.30 Unspecified diastolic (congestive) heart failure; E87.5 Hyperkalemia; N18.6 End stage renal disease; N25.81 Secondary hyperparathyroidism of renal origin; G25.3 Myoclonus; E83.39 Other disorders of phosphorus metabolism; D64.9 Anemia, unspecified; K21.9 Gastro-esophageal reflux disease without esophagitis; G47.00 Insomnia, unspecified; E78.00 Pure hypercholesterolemia, unspecified; F32.9 Major depressive disorder, single episode, unspecified; Z79.899 Other long term (current) drug therapy; Z99.2 Dependence on renal dialysis; Z91.15 Patient's noncompliance with renal dialysis; Z91.19 Patient's noncompliance with other medical treatment and regimen; Z88.8 Allergy status to other drugs, medicaments and biological substances
CPT/HCPCS: 36415; 70450; 71045; 80048; 80053; 80061; 82550; 82962; 83605; 83735; 83880; 84100; 84153; 84443; 84484; 85025; 85610; 87070; 87205; 89050; 93005; 95816; 96374; 96375; 99291; C9113; J0610; J1200; J1815; J2405; J3490; J7060

== ENCOUNTER 2017-09-17 12:38 | Inpatient (IN) | payer OTHER ==
[~2017-09-17] VITALS: Ht 190.5 cm; Wt 85.7 kg
[2017-09-17] VITALS (12 sets, daily range): BP systolic 104–196; BP diastolic 73–116
[2017-09-17 13:33] LABS: CHLORIDE 95 mEq/L (98-107); INR 1.1; PROTHROMBIN TIME 11.5 sec (9.4-11.6)
[2017-09-17 13:39] LABS: MEAN CORPUSCULAR HEMOGLOBIN 29.4 pg (28.0-32.0); MEAN CORPUSCULAR VOLUME 87.3 fL (80.0-94.0); MEAN PLATELET VOLUME 8.6 fl (7.4-10.4); PLATELET 228 x1000/uL (130-400); RED BLOOD CELL COUNT 1.76 mill/uL (4.7-6.1); RED CELL DISTRIBUTION WIDTH 16.2 % (11.6-14.6)
[2017-09-17 13:46] LABS: HEMATOCRIT. 15.4 % (42.0-52.0); HEMOGLOBIN. 5.2 g/dL (14.0-18.0)
[2017-09-17 14:41] LABS: PLATELET ESTIMATE NORMAL
[2017-09-17] MEDS ORDERED: SODIUM BICARBONATE 4% (2.4MEQ) 5ML VIAL IV ONE (15:27)
[2017-09-17] MEDS ORDERED: LIDOCAINE HCL 1% 20ML VIAL (Pyxis) INJ ONE (15:28)
[2017-09-17 15:39] LABS: ETHANOL BLOOD < 10 mg/dL
[2017-09-17] MEDS ORDERED: SODIUM BICARBONATE 8.4% 1 MEQ/ML 50ML SYR IV ONE (15:45)
[2017-09-17] MEDS ORDERED: SODIUM POLYSTYRENE SULFONATE 15 G/60 ML BOT PO ONE (15:45)
[2017-09-17] MEDS ORDERED: CALCIUM CHLORIDE 1GM/10ML SYR IV ONE (15:45)
[2017-09-17 16:42] LABS: TOTAL IRON BINDING CAPACITY 260 ug/dL (250-450)
[2017-09-17 16:58] LABS: FERRITIN 874 ng/mL (22-322)
[2017-09-17 17:09] LABS: HEPATITIS B SURFACE ANTIGEN NEGATIVE
[2017-09-17] MEDS ORDERED: ACETAMINOPHEN 325MG TABLET PO PRN (17:45)
[2017-09-17] MEDS ORDERED: IPRATROPIUM/ALBUTEROL 0.5-3(2.5)MG/3ML NEB INH PRN (17:45)
[2017-09-17] MEDS ORDERED: DIPHENHYDRAMINE 50MG/ML VIAL IV PRN (17:45)
[2017-09-17] MEDS ORDERED: MAGNESIUM/ALUMINUM HYDROXIDE/SIMETHICONE 30ML UDC PO PRN (17:45)
[2017-09-17] MEDS ORDERED: HYDROCODONE/ACETAMINOPHEN 5/325MG TABLET PO PRN (17:45)
[2017-09-17] MEDS ORDERED: MORPHINE SULFATE 4 MG/ML CPJ (NOT FOR IM USE) IV PRN (17:45)
[2017-09-17] MEDS ORDERED: DOCUSATE SODIUM 100MG CAPSULE PO PRN (17:45)
[2017-09-17] MEDS ORDERED: ONDANSETRON 4MG ODT PO PRN (18:15)
[2017-09-17] MEDS: CLONIDINE 0.2MG TABLET PO SCH (18:43)
[2017-09-17] MEDS: ISOSORBIDE DINITRATE 30MG TABLET PO SCH (18:43)
[2017-09-17] MEDS: SEVELAMER CARBONATE 800 MG TABLET PO SCH (19:07)
[2017-09-17] MEDS: CALCIUM ACETATE 667MG CAPSULE PO SCH (19:07)
[2017-09-17] MEDS: EPOETIN ALFA 10000UNITS/ML VIAL SUBCUT SCH (20:42)
[2017-09-17] MEDS: HYDRALAZINE HCL 100MG TABLET PO SCH (20:43)
[2017-09-17] MEDS ORDERED: MANNITOL 12.5G (25%) VIAL 50ML IV NR (21:00)
[2017-09-17] MEDS: MANNITOL 12.5G (25%) VIAL 50ML IV NR ×2 (22:01→23:01)
[2017-09-18] VITALS (40 sets, daily range): BP systolic 107–171; BP diastolic 55–101
[2017-09-18] MEDS: PANTOPRAZOLE 40MG DR TABLET PO SCH (06:25)
[2017-09-18] MEDS: HYDRALAZINE HCL 100MG TABLET PO SCH ×3 (06:25→21:15)
[2017-09-18 07:51] LABS: MEAN CORPUSCULAR HEMOGLOBIN 29.9 pg (28.0-32.0); MEAN CORPUSCULAR VOLUME 86.4 fL (80.0-94.0); MEAN PLATELET VOLUME 8.4 fl (7.4-10.4); PLATELET 174 x1000/uL (130-400); RED BLOOD CELL COUNT 1.77 mill/uL (4.7-6.1); RED CELL DISTRIBUTION WIDTH 15.9 % (11.6-14.6)
[2017-09-18] MEDS: SEVELAMER CARBONATE 800 MG TABLET PO SCH ×3 (08:00→18:00)
[2017-09-18] MEDS: CALCIUM ACETATE 667MG CAPSULE PO SCH ×3 (08:00→18:00)
[2017-09-18] MEDS ORDERED: CEFAZOLIN 1000MG PREMIX 50 ML IV SCH (08:00)
[2017-09-18 08:05] LABS: PHOSPHORUS 8.5 mg/dL (2.5-4.9)
[2017-09-18] MEDS ORDERED: SODIUM BICARBONATE 4% (2.4MEQ) 5ML VIAL IV ONE (08:19)
[2017-09-18] MEDS ORDERED: LIDOCAINE HCL 1% 20ML VIAL (Pyxis) INJ ONE ×2 (08:20→09:31)
[2017-09-18] MEDS ORDERED: CEFAZOLIN 1000MG PREMIX 50 ML IV ONE (08:27)
[2017-09-18] MEDS ORDERED: FENTANYL CITRATE/PF 50MCG/ML 2ML VIAL ONE (08:28)
[2017-09-18] MEDS: ISOSORBIDE DINITRATE 30MG TABLET PO SCH ×2 (08:31→17:00)
[2017-09-18] MEDS: LOSARTAN POTASSIUM 100 MG TABLET PO SCH (08:32)
[2017-09-18] MEDS: CLONIDINE 0.2MG TABLET PO SCH ×2 (08:32→17:00)
[2017-09-18] MEDS: AMLODIPINE 10MG TABLET PO SCH (08:32)
[2017-09-18 08:35] LABS: HEMOGLOBIN. 5.3 g/dL (14.0-18.0)
[2017-09-18 08:36] LABS: HEMATOCRIT. 15.3 % (42.0-52.0)
[2017-09-18] MEDS: FOLIC ACID/VITAMIN B COMP W-C TABLET PO SCH (08:48)
[2017-09-18] MEDS ORDERED: MANNITOL 12.5G (25%) VIAL 50ML IV NR ×2 (09:00→17:30)
[2017-09-18] MEDS ORDERED: FENTANYL CITRATE/PF 50MCG/ML 2ML VIAL IV ONE (09:30)
[2017-09-18] MEDS ORDERED: GUAIFENESIN-DM 200MG-20MG/10ML UDC PO PRN (14:45)
[2017-09-18 15:03] LABS: PLATELET ESTIMATE NORMAL
[2017-09-18] MEDS: GUAIFENESIN 200MG/10ML SUGAR FREE UDC PO PRN (20:16)
[2017-09-19] VITALS (11 sets, daily range): BP systolic 112–169; BP diastolic 62–100
[2017-09-19 00:11] LABS: HEMATOCRIT 21.6 % (42.0-52.0); HEMOGLOBIN 7.7 g/dL (14.0-18.0)
[2017-09-19] MEDS: HYDRALAZINE HCL 100MG TABLET PO SCH ×3 (05:27→18:02)
[2017-09-19 06:59] LABS: HEMATOCRIT 23.2 % (42.0-52.0); MEAN CORPUSCULAR HEMOGLOBIN 30.3 pg (28.0-32.0); MEAN CORPUSCULAR VOLUME 87.7 fL (80.0-94.0); PLATELET 185 x1000/uL (130-400); RED BLOOD CELL COUNT 2.65 mill/uL (4.7-6.1); RED CELL DISTRIBUTION WIDTH 15.5 % (11.6-14.6)
[2017-09-19 07:26] LABS: CHLORIDE 103 mEq/L (98-107)
[2017-09-19 07:33] LABS: LDL CHOLESTEROL 66 mg/dL (5-100)
[2017-09-19 07:34] LABS: HDL CHOLESTEROL 58 mg/dL (40-59); T4 FREE 0.93 ng/dL (0.76-1.46)
[2017-09-19] MEDS: CLONIDINE 0.2MG TABLET PO SCH ×2 (07:56→18:01)
[2017-09-19] MEDS: SEVELAMER CARBONATE 800 MG TABLET PO SCH ×3 (07:56→18:01)
[2017-09-19] MEDS: FOLIC ACID/VITAMIN B COMP W-C TABLET PO SCH (07:56)
[2017-09-19] MEDS: LOSARTAN POTASSIUM 100 MG TABLET PO SCH (07:57)
[2017-09-19] MEDS: PANTOPRAZOLE 40MG DR TABLET PO SCH (07:57)
[2017-09-19] MEDS: ISOSORBIDE DINITRATE 30MG TABLET PO SCH ×2 (07:57→18:01)
[2017-09-19] MEDS: AMLODIPINE 10MG TABLET PO SCH (07:57)
[2017-09-19] MEDS: CALCIUM ACETATE 667MG CAPSULE PO SCH ×3 (07:57→18:01)
[2017-09-19] MEDS: GUAIFENESIN 200MG/10ML SUGAR FREE UDC PO PRN (12:22)
[2017-09-19] MEDS ORDERED: LEVOFLOXACIN 500MG PREMIX 100 ML IV SCH (15:00)
[2017-09-19] MEDS ORDERED: LEVOFLOXACIN 500MG PREMIX 100 ML IV NR (17:00)
[2017-09-19 17:54] LABS: HEMATOCRIT 22.1 % (42.0-52.0); HEMOGLOBIN 7.5 g/dL (14.0-18.0)
[2017-09-19 18:18] LABS: HEPATITIS B SURFACE AB < 3.1 mIU/mL
[2017-09-19 18:57] LABS: HEPATITIS B CORE AB IGM NEGATIVE
[2017-09-19] MEDS: EPOETIN ALFA 10000UNITS/ML VIAL SUBCUT SCH (20:56)
[2017-09-20] VITALS (17 sets, daily range): BP systolic 115–148; BP diastolic 65–99
[2017-09-20] MEDS: HYDRALAZINE HCL 100MG TABLET PO SCH ×4 (00:19→17:59)
[2017-09-20 06:24] LABS: HEMATOCRIT 22.2 % (42.0-52.0); HEMOGLOBIN 7.6 g/dL (14.0-18.0); MEAN CORPUSCULAR HEMOGLOBIN 30.5 pg (28.0-32.0); MEAN CORPUSCULAR VOLUME 88.8 fL (80.0-94.0); PLATELET 183 x1000/uL (130-400); RED CELL DISTRIBUTION WIDTH 15.4 % (11.6-14.6)
[2017-09-20 07:50] LABS: PHOSPHORUS 6.7 mg/dL (2.5-4.9)
[2017-09-20] MEDS: ISOSORBIDE DINITRATE 30MG TABLET PO SCH ×2 (08:38→17:59)
[2017-09-20] MEDS: FOLIC ACID/VITAMIN B COMP W-C TABLET PO SCH (08:38)
[2017-09-20] MEDS: SEVELAMER CARBONATE 800 MG TABLET PO SCH ×3 (08:38→17:59)
[2017-09-20] MEDS: CALCIUM ACETATE 667MG CAPSULE PO SCH ×3 (08:38→17:59)
[2017-09-20] MEDS: PANTOPRAZOLE 40MG DR TABLET PO SCH (08:38)
[2017-09-20] MEDS: LOSARTAN POTASSIUM 100 MG TABLET PO SCH (08:39)
[2017-09-20] MEDS: CLONIDINE 0.2MG TABLET PO SCH ×2 (08:40→17:59)
[2017-09-20] MEDS: AMLODIPINE 10MG TABLET PO SCH (08:40)
[2017-09-21] MEDS ORDERED: LEVOFLOXACIN 250MG PREMIX 50 ML IV SCH (15:30)
== END 2017-09-20 19:00 | disposition home or self-care (01) | DRG 377 ==
LOC: ER 13:22 → 5EST 15:35 → EDBEDREQ 15:41 → EDBEDREQSVC 15:41 → ENRESERV 15:48 → CANBEDREQ 16:28 → SUPCPDRO 17:38
PROVIDERS: ADMIT Internal Medicine; ATTEND Internal Medicine
PROC: 30233N1 Transfusion of Nonautologous Red Blood Cells into Peripheral Vein, Percutaneous Approach (ICD-10-PCS; principal; 2017-09-17)
PROC: 3E1M39Z Irrigation of Peritoneal Cavity using Dialysate, Percutaneous Approach (ICD-10-PCS; 2017-09-17)
PROC: 02HV33Z Insertion of Infusion Device into Superior Vena Cava, Percutaneous Approach (ICD-10-PCS; 2017-09-17)
PROC: B548ZZA Ultrasonography of Superior Vena Cava, Guidance (ICD-10-PCS; 2017-09-17)
PROC: 0JH63XZ Insertion of Tunneled Vascular Access Device into Chest Subcutaneous Tissue and Fascia, Percutaneous Approach (ICD-10-PCS; 2017-09-18)
PROC: 02HV33Z Insertion of Infusion Device into Superior Vena Cava, Percutaneous Approach (ICD-10-PCS; 2017-09-18)
PROC: B5181ZA Fluoroscopy of Superior Vena Cava using Low Osmolar Contrast, Guidance (ICD-10-PCS; 2017-09-18)
PROC: 3E1M39Z Irrigation of Peritoneal Cavity using Dialysate, Percutaneous Approach (ICD-10-PCS; 2017-09-18)
DX: K92.2 Gastrointestinal hemorrhage, unspecified (principal); I50.33 Acute on chronic diastolic (congestive) heart failure; N18.6 End stage renal disease; N17.9 Acute kidney failure, unspecified; I13.2 Hypertensive heart and chronic kidney disease with heart failure and with stage 5 chronic kidney disease, or end stage renal disease; E46 Unspecified protein-calorie malnutrition; N25.81 Secondary hyperparathyroidism of renal origin; D63.8 Anemia in other chronic diseases classified elsewhere; E83.39 Other disorders of phosphorus metabolism; E78.5 Hyperlipidemia, unspecified; G63 Polyneuropathy in diseases classified elsewhere; K21.9 Gastro-esophageal reflux disease without esophagitis; E87.70 Fluid overload, unspecified; E78.00 Pure hypercholesterolemia, unspecified; E87.5 Hyperkalemia; F32.9 Major depressive disorder, single episode, unspecified; Z91.15 Patient's noncompliance with renal dialysis; Z91.19 Patient's noncompliance with other medical treatment and regimen; Z99.2 Dependence on renal dialysis; Z88.5 Allergy status to narcotic agent; Z79.899 Other long term (current) drug therapy; Z68.23 Body mass index [BMI] 23.0-23.9, adult
CPT/HCPCS: 36415; 36556; 36558; 36589; 71045; 74176; 76937; 77001; 80048; 80053; 80061; 82728; 83540; 83550; 83605; 83880; 83970; 84100; 84439; 84443; 84484; 85014; 85018; 85025; 85027; 85610; 85730; 86705; 86706; 86803; 86850; 86900; 86920; 87040; 87340; 93005; 93306; 93970; 96374; 96375; 99152; 99153; 99291; C1750; C1752; C1769; G0482; J0690; J0885; J1642; J1956; J2150; J3010; J3490; J7030; J7050; P9016

== ENCOUNTER → 2018-06-18 | Day surgery (SDC) | payer BC, OTHER ==
[~2018-06-18] MED LIST changes: +LIDOCAINE HCL 1% 20ML VIAL (Pyxis) INJ ONE
== END | disposition home or self-care (01) ==
LOC: ANGIO 08:00 → EDSTATUS 08:10
DX: I12.0 Hypertensive chronic kidney disease with stage 5 chronic kidney disease or end stage renal disease (principal); N18.6 End stage renal disease; D64.9 Anemia, unspecified; E78.5 Hyperlipidemia, unspecified; K21.9 Gastro-esophageal reflux disease without esophagitis; Z88.5 Allergy status to narcotic agent; Z79.899 Other long term (current) drug therapy; Z98.890 Other specified postprocedural states
CPT/HCPCS: 36589; J3490